=== PATIENT | female | born 1935 | race Caucasian/White ===

== ENCOUNTER → 2016-12-11 | Outpatient (CLI) | payer MEDICARE, BC ==
--- NOTE | 2016-12-12 13:01 | MM ---
Reason for exam: screening (asymptomatic). Last mammogram was performed 1 year and 1 month ago. History: Patient is postmenopausal and has history of other cancer at age 39. Took estrogen for 2 years. Took progesterone for 2 years. Physical Findings: A clinical breast exam by your physician is recommended on an annual basis and results should be correlated with mammographic findings. MG 3D Screening Mammo W/Cad Bilateral CC and MLO view(s) were taken. Prior study comparison: November 22, 2015, bilateral MG 3d screening mammo w/cad. October 31, 2014, mammogram, performed at [facility]. The breast tissue is heterogeneously dense. This may lower the sensitivity of mammography. No significant changes when compared with prior studies. ASSESSMENT: Benign, BI-RAD 2 RECOMMENDATION: Routine screening mammogram of both breasts in 1 year.
== END | disposition home or self-care (01) ==
LOC: RADMAMWWP 10:41
PROVIDERS: ATTEND Family Medicine
DX: Z12.31 Encounter for screening mammogram for malignant neoplasm of breast (principal)
CPT/HCPCS: 77063; G0202

== ENCOUNTER 2017-08-20 07:46 | Day surgery (SDC) | payer MEDICARE, BC ==
[~2017-08-20 07:46] MED LIST: PREMYELOGRAM MEDICATION REVIEW 1 EACH MISC PO ONE
[2017-08-20 08:55] VITALS: BP 157/73; PULSE 87; RESP 16; TEMP 98.1
== END 2017-08-20 08:40 | disposition home or self-care (01) ==
LOC: RADPROMAIN 07:46
PROVIDERS: ATTEND Neurological Surgery
DX: M47.27 Other spondylosis with radiculopathy, lumbosacral region (principal); M48.061 Spinal stenosis, lumbar region without neurogenic claudication; Z53.20 Procedure and treatment not carried out because of patient's decision for unspecified reasons

== ENCOUNTER → 2017-09-10 | Day surgery (SDC) | payer MEDICARE, BC ==
[2017-09-10 08:44] VITALS: RESP 16; TEMP 97.6
--- NOTE | 2017-09-10 10:52 | CT ---
EXAMINATION TYPE: CT lumbar spine w con, [place] myelogram lumbosacral DATE OF EXAM: 09/10/2017 10:00 AM HISTORY: Lower extremity pain and numbness Informed consent was obtained and all the patient's questions were answered. The L3-L4 level was loc alized under fluoroscopy. Standard sterile technique was utilized as well as appropriate local anest hesia 1% Lidocaine and sodium bicarbonate. Spinal needle was introduced into the thecal sac under fl uoroscopic guidance and 10 cc of Omni 240 was injected. The patient tolerated the procedure well and left the department in stable condition. CT myelography is to follow. IMPRESSION: Successful myelography lumbar spine EXAMINATION TYPE: CT lumbar spine w con, [place] myelogram lumbosacral DATE OF EXAM: 09/10/2017 COMPARISON: 12/22/2006 HISTORY: Radiculopathy CT DLP: 713.[address] mGy[address] of the lumbar spine was performed. Bone and soft tissue window settings are submit rebekah as well as coronal and sagittal reconstructions. T11-12: Vacuum disc changes. Subligamentous disc herniation. Mild effacement ventral thecal sac. No e vidence for central stenosis or cord contact. T12-L1: No significant abnormality L1-L2: Severe disc desiccation with vacuum disc noted. Retrolisthesis L1 and L2 of approximately 4 mm . Posterior disc bulge with encapsulating spur. Bilateral lateral recess stenosis. Left hemilaminecto my changes. No evidence for central stenosis. L2-L3: Decompressive laminectomy changes. Moderate disc space narrowing. Circumferential disc bulge m ild effacement ventral thecal sac. No evidence for recurrent or residual disease. Disc endplate compl ex. Pedicular screws noted. Alignment near-anatomic. L3-L4: Moderate degenerative disc space narrowing. Minimal posterior disc bulge. Decompressive briana ctomy. No evidence for recurrent or residual disease. L4-L5: Grade 1 anterolisthesis L4 and L5 measuring 8 mm. Decompressive laminectomy changes. Pedicular screws extending into L5. Posterior disc bulge with mild effacement ventral thecal sac. No evidence for central stenosis or recurrent disease. Spinal canal is widely capacious. L5-S1: Moderate disc space narrowing. Posterior disc bulge with encapsulating spur resulting in disc endplate complex. Mild effacement ventral thecal sac. No central stenosis or lateral recess stenosis. Foramina are patent. No paraspinal masses are identified. Lumbar segments are free if fracture. Hiatal hernia identified. IMPRESSION: 1. Postoperative changes of lumbar laminectomy and pedicular screw placement. Alignment is essentiall y stable relative to the prior study. 2. Degenerative disc disease with bulging and disc endplate complex as outlined above.
[2017-09-10 14:59] VITALS: BP 147/42; PULSE 51
== END ==
LOC: RADPROMAIN 07:56
PROVIDERS: ATTEND Neurological Surgery
DX: M51.16 Intervertebral disc disorders with radiculopathy, lumbar region (principal); M51.17 Intervertebral disc disorders with radiculopathy, lumbosacral region; M48.061 Spinal stenosis, lumbar region without neurogenic claudication; M47.817 Spondylosis without myelopathy or radiculopathy, lumbosacral region; G56.03 Carpal tunnel syndrome, bilateral upper limbs
CPT/HCPCS: 36415; 62304; 72132; Q9966; 62284; 99213

== ENCOUNTER → 2018-01-08 | Outpatient (CLI) | payer MEDICARE, BC ==
--- NOTE | 2018-01-14 10:04 | MM ---
Reason for exam: screening (asymptomatic). Last mammogram was performed 1 year and 1 month ago. History: Patient is postmenopausal and has history of other cancer at age 39. Took estrogen for 2 years. Took progesterone for 2 years. Physical Findings: A clinical breast exam by your physician is recommended on an annual basis and results should be correlated with mammographic findings. MG 3D Screening Mammo W/Cad Bilateral CC and MLO view(s) were taken. Prior study comparison: December 11, 2016, bilateral MG 3d screening mammo w/cad. November 22, 2015, bilateral MG 3d screening mammo w/cad. Finding: There are typically benign vascular, dystrophic, coarse heterogeneous, diffuse/scattered calcifications in both breasts. Asymmetries bilaterally. No significant changes in finding since December 11, 2016 and November 22, 2015. ASSESSMENT: Benign, BI-RAD 2 RECOMMENDATION: Routine screening mammogram of both breasts in 1 year.
== END | disposition home or self-care (01) ==
LOC: RADMAMWWP 11:08
PROVIDERS: ATTEND Family Medicine
DX: Z12.31 Encounter for screening mammogram for malignant neoplasm of breast (principal)
CPT/HCPCS: 77063; 77067

== ENCOUNTER 2018-03-15 21:52 | Emergency (ER) | payer MEDICARE, BC ==
[2018-03-15] MEDS ORDERED: SODIUM CHLORIDE 0.9% 1,000 ML IV STA (22:06)
[2018-03-15 22:19] LABS: Basophils # (A) 0.1 k/uL (0-0.2); Basophils % (A) 1 %; Eosinophils # (A) 0.2 k/uL (0-0.7); Eosinophils % (A) 3 %; HCT 37.6 % (34.0-46.0); Lymphocytes # (A) 1.4 k/uL (1.0-4.8); Lymphocytes % (A) 21 %; MCH 29.6 pg (25.0-35.0); MCV 92.6 fL (80.0-100.0); Mean Platelet Volume 7.6; Monocytes # (A) 0.5 k/uL (0-1.0); Monocytes % (A) 8 %; Neutrophils # (A) 4.2 k/uL (1.3-7.7); Neutrophils % (A) 63 %; Platelet Count 177 k/uL (150-450); RBC 4.06 m/uL (3.80-5.40); RDW 13.5 % (11.5-15.5); WBC 6.7 k/uL (3.8-10.6)
[2018-03-15 22:26] LABS: INR 0.9 (<1.2); Partial Thromboplastin Time 23.3 sec (22.0-30.0); Prothrombin Time 9.5 sec (9.0-12.0)
[2018-03-15 22:29] LABS: Albumin 4.2 g/dL (3.5-5.0); Calcium 9.2 mg/dL (8.4-10.2); Magnesium 1.7 mg/dL (1.6-2.3); Potassium 4.7 mmol/L (3.5-5.1); Total Bilirubin 0.3 mg/dL (0.2-1.3); Total Protein 6.6 g/dL (6.3-8.2)
--- NOTE | 2018-03-15 22:37 | XR ---
EXAMINATION TYPE: XR chest 2V DATE OF EXAM: 03/15/2018 COMPARISON: NONE HISTORY: Chest pain TECHNIQUE: Frontal and lateral views of the chest are obtained. FINDINGS: Heart and mediastinum are normal. Lungs are clear of consolidation. There is no pleural ef fusion. There is cervical spine fusion surgery. There are chest leads. Bony thorax appears intact. IMPRESSION: No active cardiopulmonary disease. Normal heart.
[2018-03-15 22:41] VITALS: PULSE 64
[2018-03-15 22:42] LABS: Creatine Kinase 94 U/L (30-135)
[2018-03-15 22:55] LABS: Troponin I <0.012 ng/mL (0.000-0.034)
--- NOTE | 2018-03-15 23:00 | ED ---
General Adult HPI - General Chief complaint: Chest Pain Stated complaint: Chest pain Time Seen by Provider: 03/15/18 22:05 Source: patient, family, RN notes reviewed, old records reviewed Mode of arrival: wheelchair Limitations: no limitations - History of Present Illness Initial comments: This is an 9-year-old female the ER today complaining of chest pain. Patient has no history of heart disease. Patient is high cholesterol high blood pressure. Patient admits to doing some work in a gradually sleeping but develops shoulder and anterior breast pain and tenderness afterwards. She felt pain throughout the day and is coming in for evaluation. No modifying factors for pain currently. Patient is recent travel history or sick contacts. No shortness of breath or fevers -: hour(s) (6) Location: chest, left, upper extremity Radiation: non-radiation Severity scale (1-10): 3 Quality: aching Consistency: constant Improves with: none Worsens with: movement, other (Touch) Associated Symptoms: denies other symptoms Treatments Prior to Arrival: none - Related Data Home Medications Medication Instructions Recorded Confirmed Aspirin [Adult Low Dose Aspirin EC] 81 mg PO DAILY 08/13/17 08/20/17 Cranberry Fruit Extract [Cranberry] 200 mg PO DAILY 08/13/17 08/20/17 Levothyroxine Sodium [Synthroid] 75 mcg PO DAILY 08/13/17 08/20/17 Losartan Potassium 100 mg PO DAILY 08/13/17 09/10/17 Multivitamin with Iron 1 each PO DAILY 08/13/17 08/20/17 [Multivitamins with Iron] quiNINE SULFATE 324 mg PO ONCE PRN 08/13/17 08/20/17 Allergies Allergy/AdvReac Type Severity Reaction Status Date / Time codeine Allergy Nausea & Verified 03/15/18 22:00 Vomiting latex Allergy Rash/Hives Verified 03/15/18 22:00 morphine Allergy Hallucinati Verified 03/15/18 22:00 ons Penicillins Allergy Swelling Verified 03/15/18 22:00 Sulfa (Sulfonamide Allergy Rash/Hives Verified 03/15/18 22:00 Antibiotics) Review of Systems ROS Statement: Those systems with pertinent positive or pertinent negative responses have been documented in the HPI. ROS Other: All systems not noted in ROS Statement are negative. Past Medical History Past Medical History: Hypertension, Neurologic Disorder, Respiratory Disorder, Thyroid Disorder Additional Past Medical History / Comment(s): pain with standing and walking, unable to lift leg more than few inches, numbness of finger and pain in the arm , carpal tunnel, History of Any Multi-Drug Resistant Organisms: None Reported Past Surgical History: Cholecystectomy, Hysterectomy Additional Past Surgical History / Comment(s): left and right knee replacement and left hip replacement, lumbar fusion with plate and screws 2009, removal of scar tissue on spine. LUMBAR MYELOGRAM. Past Anesthesia/Blood Transfusion Reactions: No Reported Reaction Past Psychological History: No Psychological Hx Reported Smoking Status: Never smoker Past Alcohol Use History: Occasional Past Drug Use History: None Reported - Past Family History Father Family Medical History: Congestive Heart Failure (CHF) General Exam - General Exam Comments Initial Comments: He does have tenderness underneath her left breast Limitations: no limitations General appearance: alert, in no apparent distress Head exam: Present: atraumatic, normocephalic, normal inspection Eye exam: Present: normal appearance, PERRL, EOMI. Absent: scleral icterus, conjunctival injection, periorbital swelling ENT exam: Present: normal exam, mucous membranes moist Neck exam: Present: normal inspection. Absent: tenderness, meningismus, lymphadenopathy Respiratory exam: Present: normal lung sounds bilaterally. Absent: respiratory distress, wheezes, rales, rhonchi, stridor Cardiovascular Exam: Present: regular rate, normal rhythm, normal heart sounds. Absent: systolic murmur, diastolic murmur, rubs, gallop, clicks GI/Abdominal exam: Present: soft, normal bowel sounds. Absent: distended, tenderness, guarding, rebound, rigid Extremities exam: Present: normal inspection, full ROM, normal capillary refill. Absent: tenderness, pedal edema, joint swelling, calf tenderness Back exam: Present: normal inspection Neurological exam: Present: alert, oriented X3, CN II-XII intact Psychiatric exam: Present: normal affect, normal mood Skin exam: Present: warm, dry, intact, normal color. Absent: rash Course Vital Signs 03/15/18 03/15/18 21:55 22:40 Temperature 97.7 F Pulse Rate 87 64 Respiratory 16 18 Rate Blood Pressure 193/77 129/58 O2 Sat by Pulse 96 100 Oximetry - Reevaluation(s) Reevaluation #1: 03/15/18 22:59 Medical records thoroughly reviewed EKG Findings - EKG Comments: EKG Findings:: EKG shows sinus rhythm rate of 70, CT 210, QRS 90, QTc 393 Medical Decision Making - Lab Data Result diagrams: 03/15/18 22:00 03/15/18 22:00 Lab Results 03/15/18 03/15/18 03/15/18 Range/Units 22:00 22:00 22:00 WBC 6.7 (3.8-10.6) k/uL RBC 4.06 (3.80-5.40) m/uL Hgb 12.0 (11.4-16.0) gm/dL Hct 37.6 (34.0-46.0) % MCV 92.6 (80.0-100.0) fL MCH 29.6 (25.0-35.0) pg MCHC 32.0 (31.0-37.0) g/dL RDW 13.5 (11.5-15.5) % Plt Count 177 (150-450) k/uL Neutrophils % 63 % Lymphocytes % 21 % Monocytes % 8 % Eosinophils % 3 % Basophils % 1 % Neutrophils # 4.2 (1.3-7.7) k/uL Lymphocytes # 1.4 (1.0-4.8) k/uL Monocytes # 0.5 (0-1.0) k/uL Eosinophils # 0.2 (0-0.7) k/uL Basophils # 0.1 (0-0.2) k/uL PT (9.0-12.0) sec INR (<1.2) APTT (22.0-30.0) sec Sodium 139 (137-145) mmol/L Potassium 4.7 (3.5-5.1) mmol/L Chloride 104 (98-107) mmol/L Carbon Dioxide 25 (22-30) mmol/L Anion Gap 10 mmol/L BUN 38 H (7-17) mg/dL Creatinine 1.31 H (0.52-1.04) mg/dL Est GFR (CKD-EPI)AfAm 44 (>60 ml/min/1.73 sqM) Est GFR (CKD-EPI)NonAf 38 (>60 ml/min/1.73 sqM) Glucose 88 (74-99) mg/dL Calcium 9.2 (8.4-10.2) mg/dL Magnesium 1.7 (1.6-2.3) mg/dL Total Bilirubin 0.3 (0.2-1.3) mg/dL AST 24 (14-36) U/L ALT 21 (9-52) U/L Alkaline Phosphatase 65 (38-126) U/L Total Creatine Kinase 94 (30-135) U/L CK-MB (CK-2) 1.3 (0.0-2.4) ng/mL CK-MB (CK-2) Rel Index 1.4 Troponin I <0.012 (0.000-0.034) ng/mL NT-Pro-B Natriuret Pep pg/mL Total Protein 6.6 (6.3-8.2) g/dL Albumin 4.2 (3.5-5.0) g/dL Lipase 123 (23-300) U/L 03/15/18 03/15/18 Range/Units 22:00 22:00 WBC (3.8-10.6) k/uL RBC (3.80-5.40) m/uL Hgb (11.4-16.0) gm/dL Hct (34.0-46.0) % MCV (80.0-100.0) fL MCH (25.0-35.0) pg MCHC (31.0-37.0) g/dL RDW (11.5-15.5) % Plt Count (150-450) k/uL Neutrophils % % Lymphocytes % % Monocytes % % Eosinophils % % Basophils % % Neutrophils # (1.3-7.7) k/uL Lymphocytes # (1.0-4.8) k/uL Monocytes # (0-1.0) k/uL Eosinophils # (0-0.7) k/uL Basophils # (0-0.2) k/uL PT 9.5 (9.0-12.0) sec INR 0.9 (<1.2) APTT 23.3 (22.0-30.0) sec Sodium (137-145) mmol/L Potassium (3.5-5.1) mmol/L Chloride (98-107) mmol/L Carbon Dioxide (22-30) mmol/L Anion Gap mmol/L BUN (7-17) mg/dL Creatinine (0.52-1.04) mg/dL Est GFR (CKD-EPI)AfAm (>60 ml/min/1.73 sqM) Est GFR (CKD-EPI)NonAf (>60 ml/min/1.73 sqM) Glucose (74-99) mg/dL Calcium (8.4-10.2) mg/dL Magnesium (1.6-2.3) mg/dL Total Bilirubin (0.2-1.3) mg/dL AST (14-36) U/L ALT (9-52) U/L Alkaline Phosphatase (38-126) U/L Total Creatine Kinase (30-135) U/L CK-MB (CK-2) (0.0-2.4) ng/mL CK-MB (CK-2) Rel Index Troponin I (0.000-0.034) ng/mL NT-Pro-B Natriuret Pep 106 pg/mL Total Protein (6.3-8.2) g/dL Albumin (3.5-5.0) g/dL Lipase (23-300) U/L - Radiology Data Radiology results: report reviewed (Chest x-rays negative for acute disease), image reviewed Disposition Clinical Impression: Chest pain Disposition: HOME SELF-CARE Condition: Good Instructions: Chest Pain (ED) Is patient prescribed a controlled substance at d/c from ED?: No Referrals: Oscar Lemon MD [Primary Care Provider] - 1-2 days
[2018-03-15 23:14] LABS: Creatine Kinase MB 1.3 ng/mL (0.0-2.4)
[2018-03-16 00:26] VITALS: BP 178/76; RESP 16; TEMP 98
== END 2018-03-16 00:34 | disposition home or self-care (01) ==
LOC: EC 21:52
DX: R07.9 Chest pain, unspecified (principal); N64.4 Mastodynia; M25.512 Pain in left shoulder; I10 Essential (primary) hypertension; E07.9 Disorder of thyroid, unspecified; Z88.0 Allergy status to penicillin; Z88.2 Allergy status to sulfonamides; Z88.5 Allergy status to narcotic agent; Z91.040 Latex allergy status; Z79.82 Long term (current) use of aspirin; Z79.899 Other long term (current) drug therapy; Z87.39 Personal history of other diseases of the musculoskeletal system and connective tissue; Z82.49 Family history of ischemic heart disease and other diseases of the circulatory system
CPT/HCPCS: 36415; 71046; 80053; 82550; 82553; 83690; 83735; 83880; 84484; 85025; 85610; 85730; 93005; 96360; 96361; 99285

== ENCOUNTER → 2019-02-09 | Outpatient (CLI) | payer MEDICARE, BC ==
--- NOTE | 2019-02-11 09:30 | MM ---
Reason for exam: screening (asymptomatic). Last mammogram was performed 1 year and 1 month ago. History: Patient is postmenopausal and has history of other cancer at age 39. Took estrogen for 2 years. Took progesterone for 2 years. Physical Findings: A clinical breast exam by your physician is recommended on an annual basis and results should be correlated with mammographic findings. MG 3D Screening Mammo W/Cad Bilateral CC and MLO view(s) were taken. Prior study comparison: January 08, 2018, bilateral MG 3d screening mammo w/cad. December 11, 2016, bilateral MG 3d screening mammo w/cad. The breast tissue is heterogeneously dense. This may lower the sensitivity of mammography. No significant changes when compared with prior studies. ASSESSMENT: Benign, BI-RAD 2 RECOMMENDATION: Routine screening mammogram of both breasts in 1 year.
== END | disposition home or self-care (01) ==
LOC: RADMAMWWP 10:48
PROVIDERS: ATTEND Family Medicine
DX: Z12.31 Encounter for screening mammogram for malignant neoplasm of breast (principal)
CPT/HCPCS: 77063; 77067

== ENCOUNTER → 2020-03-17 | Outpatient (CLI) | payer MEDICARE, BC ==
--- NOTE | 2020-03-17 10:08 | MM ---
Reason for exam: clinical finding. Last mammogram was performed 1 year and 1 month ago. History: Patient is postmenopausal and has history of other cancer at age 39. Benign excisional biopsy of the right breast, 2004. Took estrogen for 2 years. Took progesterone for 2 years. Physical Findings: Nurse Summary: 1cm nodule in the left breast at 9 o'clock (nurse mj). MG 3D Diag Mammo W/Cad YAJAIRA Bilateral CC and MLO view(s) were taken. Prior study comparison: February 09, 2019, bilateral MG 3d screening mammo w/cad. January 08, 2018, bilateral MG 3d screening mammo w/cad. The breast tissue is heterogeneously dense. This may lower the sensitivity of mammography. There is chronic nodularity bilaterally. There is no discrete abnormality including area of concern. These results were verbally communicated with the patient and result sheet given to the patient on 03/17/20. ASSESSMENT: Incomplete: need additional imaging evaluation, BI-RAD 0 RECOMMENDATION: Ultrasound of the left breast.
--- NOTE | 2020-03-17 10:09 | USB ---
Reason for exam: additional evaluation requested from abnormal screening. History: Patient is postmenopausal and has history of other cancer at age 39. Benign excisional biopsy of the right breast, 2004. Took estrogen for 2 years. Took progesterone for 2 years. US Breast Limited LT Technologist: Ely Leach Left limited breast ultrasound including focal area of concern, retroareolar and axilla demonstrates no cystic or solid lesion seen. These results were verbally communicated with the patient and result sheet given to the patient on 03/17/20. ASSESSMENT: Negative, BI-RAD 1 RECOMMENDATION: Routine screening mammogram of both breasts in 1 year. Manage patient on a clinical basis.
== END | disposition home or self-care (01) ==
LOC: RADMAMWWP 08:41
PROVIDERS: ATTEND Family Medicine
DX: N63.20 Unspecified lump in the left breast, unspecified quadrant (principal); N64.52 Nipple discharge; N64.59 Other signs and symptoms in breast
CPT/HCPCS: 77066; 76642; G0279; 77062

== ENCOUNTER 2020-08-11 13:13 | Emergency (ER) | payer MEDICARE, BC ==
[2020-08-11 13:24] VITALS: RESP 18; TEMP 97.6
--- NOTE | 2020-08-11 13:51 | ED ---
General Adult HPI - General Chief complaint: Neuro Symptoms/Deficit Stated complaint: head & arm pain/dizziness Time Seen by Provider: 08/11/20 13:15 Source: patient, family, RN notes reviewed, old records reviewed Mode of arrival: wheelchair Limitations: no limitations - History of Present Illness Initial comments: This is an 85-year-old female presents emergency Department complaining of facial drooping on the right on Friday. Patient states that resolved and is in agreement. Patient states that on Friday while sitting in a chair she started having some lightheadedness and stated it was worsening with movement and better when she sits still. Patient states the symptoms of almost completely resolved and now she only has a little bit of lightheadedness. Patient states she also having some tingling in her fingertips on and off for weeks. Patient denies any recent fever chills or cough per patient denies any chest pressure or difficulty breathing. Patient denies any headache. Patient denies any current numbness or weakness. Patient denies any abdominal pain patient is not vomiting diarrhea. - Related Data Home Medications Medication Instructions Recorded Confirmed Aspirin [Adult Low Dose Aspirin EC] 81 mg PO DAILY 08/13/17 08/11/20 Levothyroxine Sodium [Synthroid] 75 mcg PO DAILY 08/13/17 08/11/20 Losartan Potassium 100 mg PO DAILY 08/13/17 08/11/20 quiNINE sulfate [quiNINE SULFATE] 324 mg PO DAILY PRN 08/13/17 08/11/20 Biotin 5,000 mcg PO DAILY 08/11/20 08/11/20 Cranberry + Vitamin C 4200mg 2 tab PO DAILY 08/11/20 08/11/20 Allergies Allergy/AdvReac Type Severity Reaction Status Date / Time codeine Allergy Nausea & Verified 08/11/20 15:05 Vomiting latex Allergy Rash/Hives Verified 08/11/20 15:05 morphine Allergy Hallucinati Verified 08/11/20 15:05 ons Penicillins Allergy Swelling Verified 08/11/20 15:05 Sulfa (Sulfonamide Allergy Rash/Hives Verified 08/11/20 15:05 Antibiotics) Review of Systems ROS Statement: Those systems with pertinent positive or pertinent negative responses have been documented in the HPI. ROS Other: All systems not noted in ROS Statement are negative. Past Medical History Past Medical History: Hypertension, Neurologic Disorder, Respiratory Disorder, Thyroid Disorder Additional Past Medical History / Comment(s): pain with standing and walking, unable to lift leg more than few inches, numbness of finger and pain in the arm, carpal tunnel, History of Any Multi-Drug Resistant Organisms: None Reported Past Surgical History: Cholecystectomy, Hysterectomy Additional Past Surgical History / Comment(s): left and right knee replacement and left hip replacement, lumbar fusion with plate and screws 2009, removal of scar tissue on spine. LUMBAR MYELOGRAM. Past Anesthesia/Blood Transfusion Reactions: No Reported Reaction Past Psychological History: No Psychological Hx Reported Past Alcohol Use History: Occasional Past Drug Use History: None Reported - Past Family History Father Family Medical History: Congestive Heart Failure (CHF) General Exam - General Exam Comments Initial Comments: GENERAL: Patient is well-developed and well-nourished. Patient is nontoxic and well- hydrated and is in no acute distress. ENT: Neck is soft and supple. No significant lymphadenopathy is noted. Oropharynx is clear. Moist mucous membranes. Neck has full range of motion without eliciting any pain. EYES: The sclera were anicteric and conjunctiva were pink and moist. Extraocular movements were intact and pupils were equal round and reactive to light. Eyelids were unremarkable. PULMONARY: Unlabored respirations. Good breath sounds bilaterally. No audible rales rhonchi or wheezing was noted. CARDIOVASCULAR: There is a regular rate and rhythm without any murmurs gallops or rubs. ABDOMEN: Soft and nontender with normal bowel sounds. No palpable organomegaly was noted. There is no palpable pulsatile mass. SKIN: Skin is clear with no lesions or rashes and otherwise unremarkable. NEUROLOGIC: Patient is alert and oriented x3. Cranial nerves II through XII are grossly intact. Motor and sensory are also intact. Normal speech, volume and content. Symmetrical smile. Cerebellar exam grossly intact. NIH is 0 MUSCULOSKELETAL: Normal extremities with adequate strength and full range of motion. No lower extremity swelling or edema. No calf tenderness. LYMPHATICS: No significant lymphadenopathy is noted PSYCHIATRIC: Normal psychiatric evaluation. Limitations: no limitations Course Vital Signs 08/11/20 13:18 Temperature 97.6 F Pulse Rate 71 Respiratory 18 Rate Blood Pressure 177/88 O2 Sat by Pulse 95 Oximetry Medical Decision Making - Medical Decision Making EKG shows sinus bradycardia 59 bpm OK interval is 210 QRS is 86 QT interval 380 QTC is 376. EKG shows no ST segment elevation or depression CT of the brain shows no acute abnormality. CT of the head neck shows no acute abnormality. Patient did not want to stay in the hospital she wanted to follow-up with her primary medical care doctor and she agreed to take an aspirin every day. - Lab Data Result diagrams: 08/11/20 13:45 08/11/20 13:45 Lab Results 08/11/20 08/11/20 08/11/20 Range/Units 13:45 13:45 13:45 WBC 5.0 (3.8-10.6) k/uL RBC 4.37 (3.80-5.40) m/uL Hgb 13.1 (11.4-16.0) gm/dL Hct 39.6 (34.0-46.0) % MCV 90.7 (80.0-100.0) fL MCH 30.1 (25.0-35.0) pg MCHC 33.2 (31.0-37.0) g/dL RDW 12.8 (11.5-15.5) % Plt Count 172 (150-450) k/uL MPV 8.6 Neutrophils % 58 % Lymphocytes % 27 % Monocytes % 7 % Eosinophils % 3 % Basophils % 1 % Neutrophils # 2.9 (1.3-7.7) k/uL Lymphocytes # 1.4 (1.0-4.8) k/uL Monocytes # 0.4 (0-1.0) k/uL Eosinophils # 0.2 (0-0.7) k/uL Basophils # 0.1 (0-0.2) k/uL PT 9.7 (9.0-12.0) sec INR 0.9 (<1.2) APTT 24.3 (22.0-30.0) sec Sodium 138 (137-145) mmol/L Potassium 5.2 H (3.5-5.1) mmol/L Chloride 101 (98-107) mmol/L Carbon Dioxide 29 (22-30) mmol/L Anion Gap 8 mmol/L BUN 21 H (7-17) mg/dL Creatinine 0.91 (0.52-1.04) mg/dL Est GFR (CKD-EPI)AfAm 67 (>60 ml/min/1.73 sqM) Est GFR (CKD-EPI)NonAf 58 (>60 ml/min/1.73 sqM) Glucose 89 (74-99) mg/dL Calcium 9.9 (8.4-10.2) mg/dL Magnesium 1.7 (1.6-2.3) mg/dL Total Bilirubin 0.8 (0.2-1.3) mg/dL AST 42 H (14-36) U/L ALT 23 (4-34) U/L Alkaline Phosphatase 67 (38-126) U/L Troponin I (0.000-0.034) ng/mL Total Protein 7.1 (6.3-8.2) g/dL Albumin 4.6 (3.5-5.0) g/dL 08/11/20 Range/Units 13:45 WBC (3.8-10.6) k/uL RBC (3.80-5.40) m/uL Hgb (11.4-16.0) gm/dL Hct (34.0-46.0) % MCV (80.0-100.0) fL MCH (25.0-35.0) pg MCHC (31.0-37.0) g/dL RDW (11.5-15.5) % Plt Count (150-450) k/uL MPV Neutrophils % % Lymphocytes % % Monocytes % % Eosinophils % % Basophils % % Neutrophils # (1.3-7.7) k/uL Lymphocytes # (1.0-4.8) k/uL Monocytes # (0-1.0) k/uL Eosinophils # (0-0.7) k/uL Basophils # (0-0.2) k/uL PT (9.0-12.0) sec INR (<1.2) APTT (22.0-30.0) sec Sodium (137-145) mmol/L Potassium (3.5-5.1) mmol/L Chloride (98-107) mmol/L Carbon Dioxide (22-30) mmol/L Anion Gap mmol/L BUN (7-17) mg/dL Creatinine (0.52-1.04) mg/dL Est GFR (CKD-EPI)AfAm (>60 ml/min/1.73 sqM) Est GFR (CKD-EPI)NonAf (>60 ml/min/1.73 sqM) Glucose (74-99) mg/dL Calcium (8.4-10.2) mg/dL Magnesium (1.6-2.3) mg/dL Total Bilirubin (0.2-1.3) mg/dL AST (14-36) U/L ALT (4-34) U/L Alkaline Phosphatase (38-126) U/L Troponin I <0.012 (0.000-0.034) ng/mL Total Protein (6.3-8.2) g/dL Albumin (3.5-5.0) g/dL Disposition Clinical Impression: TIA (transient ischemic attack) Disposition: HOME SELF-CARE Condition: Good Instructions (If sedation given, give patient instructions): Transient Ischemic Attack (ED) Additional Instructions: Patient should take an aspirin 325 mg daily Is patient prescribed a controlled substance at d/c from ED?: No Referrals: Oscar Lemon MD [Primary Care Provider] - 1-2 days Time of Disposition: 17:14
[2020-08-11 14:22] LABS: Basophils # (A) 0.1 k/uL (0-0.2); Basophils % (A) 1 %; Eosinophils # (A) 0.2 k/uL (0-0.7); Eosinophils % (A) 3 %; HCT 39.6 % (34.0-46.0); HGB 13.1 gm/dL (11.4-16.0); Lymphocytes # (A) 1.4 k/uL (1.0-4.8); Lymphocytes % (A) 27 %; MCH 30.1 pg (25.0-35.0); MCHC 33.2 g/dL (31.0-37.0); MCV 90.7 fL (80.0-100.0); Mean Platelet Volume 8.6; Monocytes # (A) 0.4 k/uL (0-1.0); Monocytes % (A) 7 %; Neutrophils # (A) 2.9 k/uL (1.3-7.7); Neutrophils % (A) 58 %; Platelet Count 172 k/uL (150-450); RBC 4.37 m/uL (3.80-5.40); RDW 12.8 % (11.5-15.5)
[2020-08-11 14:32] LABS: INR 0.9 (<1.2); Partial Thromboplastin Time 24.3 sec (22.0-30.0); Prothrombin Time 9.7 sec (9.0-12.0)
[2020-08-11 14:43] LABS: Albumin 4.6 g/dL (3.5-5.0); Calcium 9.9 mg/dL (8.4-10.2); Magnesium 1.7 mg/dL (1.6-2.3); Total Bilirubin 0.8 mg/dL (0.2-1.3); Total Protein 7.1 g/dL (6.3-8.2)
[2020-08-11 14:53] LABS: Potassium 5.2 mmol/L (3.5-5.1)
--- NOTE | 2020-08-11 15:25 | XR ---
EXAMINATION TYPE: XR chest 2V DATE OF EXAM: 08/11/2020 COMPARISON: 03/15/2018 INDICATION: Chest pain, facial drooping dizziness TECHNIQUE: Frontal and lateral views of the chest are obtained. FINDINGS: The heart size is normal. The pulmonary vasculature is normal. The lungs are clear. IMPRESSION: 1. No acute pulmonary process.
--- NOTE | 2020-08-11 15:43 | CT ---
EXAMINATION TYPE: CT brain wo con DATE OF EXAM: 08/11/2020 COMPARISON: None HISTORY: Right sided facial droop, numbness to fingers and headache. CT DLP: 1059.[address] of the brain was performed. The ventricles, basal cisterns and sulci overlying the cerebral convexities demonstrate mild enlargem ent. There is no evidence for intracranial hemorrhage or sulcal effacement. There is decreased attenuation about the periventricular white matter and deep white matter of both c erebral hemispheres, compatible with chronic small vessel ischemia. Differential diagnosis does inclu de demyelination. No mass effects are seen.No midline shift. Osseous calvarium is intact. If symptoms persist consider MRI. IMPRESSION: 1. Age related atrophic and chronic small vessel ischemic change without acute intracranial process s een at this time.
--- NOTE | 2020-08-11 16:14 | CT ---
EXAMINATION TYPE: CT angio head neck DATE OF EXAM: 08/11/2020 COMPARISON: None HISTORY: Right sided facial droop, numbness to fingers and headache. CT DLP: 471.2 mGycm CONTRAST: Performed with IV Contrast, patient injected with 65 mL of Isovue 370. Combination Contrast CTA cervical carotids and [place] CTA cervical carotids with 3-D recons truction Contrast CTA of the cervical carotids was performed 3-D reconstruction imaging obtained at a separate workstation. Right carotid system: Mild plaque is seen of the right common carotid artery. There is mild plaque a lso noted at the carotid bulb and proximal ICA. No significant diameter reduction. ECA is patent. Right vertebral artery appears unremarkable. Left carotid system: Mild plaque is seen of the left common carotid artery. There is mild plaque als o noted at the carotid bulb and proximal ICA. No significant diameter reduction. ECA is patent. Lef t vertebral artery appears unremarkable. IMPRESSION: 1. No significant diameter reduction to account for the patient's symptoms. CTA [place] with 3-D reconstruction Contrast CTA of the [place] was performed 3-D reconstruction imaging obtained at a separate workstation. Vertebrobasilar system as well as intracranial portions of the internal carotid arteries and their ma marlon tributaries are patent. I do not see evidence for sizable aneurysm or vascular malformation. Pl ease note MRI provides greater sensitivity and specificity. Visualized brain appears grossly unremar kable. IMPRESSION: 1. No significant abnormality.
[2020-08-11 17:22] VITALS: BP 142/74; PULSE 74
== END 2020-08-11 17:32 | disposition home or self-care (01) ==
LOC: EC 13:13
DX: G45.9 Transient cerebral ischemic attack, unspecified (principal); R00.1 Bradycardia, unspecified; I10 Essential (primary) hypertension; E07.9 Disorder of thyroid, unspecified; Z79.899 Other long term (current) drug therapy; Z79.890 Hormone replacement therapy; Z79.82 Long term (current) use of aspirin; Z88.5 Allergy status to narcotic agent; Z91.040 Latex allergy status; Z88.0 Allergy status to penicillin; Z88.2 Allergy status to sulfonamides; Z96.642 Presence of left artificial hip joint; Z96.653 Presence of artificial knee joint, bilateral
CPT/HCPCS: 36415; 93005; 80053; 83735; 84484; 85025; 85610; 85730; 71046; 70496; 70450; 70498; 99285; Q9967

== ENCOUNTER → 2021-03-19 | Outpatient (CLI) | payer MEDICARE, BC ==
--- NOTE | 2021-03-20 07:29 | MM ---
Reason for exam: screening (asymptomatic). Last mammogram was performed 1 year ago. History: Patient is postmenopausal and has history of other cancer at age 39. Benign excisional biopsy of the right breast, 2004. Took estrogen for 2 years. Took progesterone for 2 years. Physical Findings: A clinical breast exam by your physician is recommended on an annual basis and results should be correlated with mammographic findings. MG 3D Screening Mammo W/Cad Bilateral CC and MLO view(s) were taken. Prior study comparison: March 17, 2020, bilateral MG 3d diag mammo w/cad [id number]. February 09, 2019, bilateral MG 3d screening mammo w/cad. The breast tissue is heterogeneously dense. This may lower the sensitivity of mammography. Finding: There are typically benign dystrophic, round, linear calcifications in both breasts. There is no discrete abnormality. ASSESSMENT: Benign, BI-RAD 2 RECOMMENDATION: Routine screening mammogram of both breasts in 1 year.
== END | disposition home or self-care (01) ==
LOC: RADMAMWWP 11:38
PROVIDERS: ATTEND Family Medicine
DX: Z12.31 Encounter for screening mammogram for malignant neoplasm of breast (principal)
CPT/HCPCS: 77063; 77067

== ENCOUNTER → 2023-01-14 | Outpatient (CLI) | payer MEDICARE, BC ==
--- NOTE | 2023-01-14 19:52 | NM ---
EXAMINATION TYPE: NM bone 3 phase DATE OF EXAM: 01/14/2023 COMPARISON: NONE CLINICAL INDICATION: Female, 87 years old with history of M25.552, Z96.642; left hip replacement and left hip pain. Technique: Triple phase bone scintigraphy was performed following the injection of 23.2 mCi Tc 99m MD P. Immediate images and 5 hours post injection images acquired. FINDINGS: Flow images show no asymmetric hyperemia. Pool images appears symmetric from side to side. Delayed scan shows photopenia at the left hip joint compatible with underlying total hip arthroplasty . No abnormal focal increased tracer activity is seen about either the acetabular or femoral prosthet ic components. 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 Some nonspecific increased tracer activity along the tibial tray components, symmetric from side to side. IMPRESSION: Photopenia related to underlying left hip arthroplasty. No abnormal tracer activity identified along the left hip replacement.
== END | disposition home or self-care (01) ==
LOC: RADNMMAIN 07:09
PROVIDERS: ATTEND Orthopaedic Surgery
DX: M25.552 Pain in left hip (principal); Z96.642 Presence of left artificial hip joint; T84.84XA Pain due to internal orthopedic prosthetic devices, implants and grafts, initial encounter; Y82.9 Unspecified medical devices associated with adverse incidents
CPT/HCPCS: 78315; A9503

== ENCOUNTER → 2023-01-14 | Outpatient (CLI) | payer MEDICARE, BC | END | disposition home or self-care (01) | LOC: LABWHC1 10:42 | PROVIDERS: ATTEND Orthopaedic Surgery | DX: T84.84XA Pain due to internal orthopedic prosthetic devices, implants and grafts, initial encounter (principal); M25.552 Pain in left hip; Y82.9 Unspecified medical devices associated with adverse incidents; Z96.642 Presence of left artificial hip joint | CPT/HCPCS: 36415; 85379; 85652; 86140 ==

== ENCOUNTER → 2023-04-15 | Outpatient (CLI) | payer MEDICARE, BC ==
--- NOTE | 2023-04-15 13:02 | NM ---
EXAMINATION TYPE: NM stress lexiscan cardiolite DATE OF EXAM: 04/15/2023 COMPARISON: NONE HISTORY: Chest pain TECHNIQUE: After the intravenous administration of 10.1 mCi Tc 99m Sestamibi - Cardiolite resting SP ECT images acquired 75 minutes post injection. At peak stress 25.4 mCi Tc 99m Sestamibi - Stress images obtained 45 minutes post injection The patient was stressed with 0.4mg Lexiscan. FINDINGS: No fixed defects are evident No reversible stress defects on Spect images Wall motion is normal Ejection fraction is calculated to be 60 %. IMPRESSION: 1. No stress-induced ischemic changes.
--- NOTE | 2023-04-15 13:02 | CA ---
Lexiscan Nuclear Stress Test Report Name: Paula Campos Exam Date: 04/15/2023 10:11 Exam Location: [facility] Stress Ht (in): 61 Wt (lb): 180 BSA: 1.81 Ordering Phys: Radha Larose DO Referring Phys: Michelle Caban PAC Technologist: Joe Watson Age: 88 Gender: F : 1935 Procedure CPT: Indications: R00.2 palpitations ICD-10 Codes: Patient History: CP, STEFAN, PALP, HTN, CVA (TIA). FAMILY HX Medications: LOSARTAN, VIT D, VIT C, SYNTHROID, BIOTON, ZINC Meds past 24 hrs: Pretest Chest Pain: STRESS TEST Lexiscan Protocol Exercise Duration (min:sec): 02:[address] Depressions (mm): Angina Score: Escoto Score: Resting HR (bpm): 55 Peak HR (bpm): 87 Resting BP (mmHg): 120 / 68 Peak BP (mmHg): 139 / 60 MPHR: 133 Target HR: 113 % MPHR: 65 METS: 1.0 Total Dose: Peak Dose: Atropine: Double Product: 43553 BP Response: Stress Termination: END OF DOSAGE Stress Symptoms: Stress Summary: ECG ANALYSIS Resting ECG: Sinus rhythm. Normal conduction. No arrhythmias. Normal repolarization. Stress ECG: No ECG changes from baseline with Lexiscan infusion. CONCLUSIONS No ECG evidence of ischemia with Lexiscan infusion. Nuclear test results to follow. Dr. Morales Cavazos MD (Electronically Signed) Final Date: 15 April 2023 13:01
== END | disposition home or self-care (01) ==
LOC: RADNMMAIN 08:04
PROVIDERS: ATTEND Family Medicine
DX: R00.2 Palpitations (principal); R94.31 Abnormal electrocardiogram [ECG] [EKG]; R06.09 Other forms of dyspnea; R07.9 Chest pain, unspecified
CPT/HCPCS: 93017; 78452; A9500

== ENCOUNTER → 2023-09-22 | Outpatient (CLI) | payer MEDICARE, BC ==
[2023-09-22 16:20] LABS: Blood Urea Nitrogen 38.9 mg/dL (9.0-27.0); Carbon Dioxide 29.2 mmol/L (21.6-31.8); Chloride 99 mmol/L (96-109); Glucose 144 mg/dL (70-110); Potassium 4.7 mmol/L (3.5-5.5); Sodium 138 mmol/L (135-145)
[2023-09-22 16:44] LABS: Prothrombin Time 10.8 sec (9.9-11.9)
[2023-09-22 17:07] LABS: Basophils # (A) 0.06 X 10*3/uL (0.00-0.10); Basophils % (A) 1.1 %; Eosinophils # (A) 0.42 X 10*3/uL (0.04-0.35); Eosinophils % (A) 7.4 %; HCT 33.8 % (37.2-46.3); HGB 10.7 g/dL (12.0-15.0); Lymphocytes # (A) 1.04 X 10*3/uL (0.90-5.00); Lymphocytes % (A) 18.3 %; MCH 28.9 pg (27.0-32.0); MCHC 31.7 g/dL (32.0-37.0); MCV 91.4 FL (80.0-97.0); Monocytes # (A) 0.57 X 10*3/uL (0.20-1.00); NRBC Per 100 WBC 0 X 10*3/uL (0.00-0.01); Neutrophils # (A) 3.58 X 10*3/uL (1.80-7.70); Neutrophils % (A) 62.8 %; Platelet Count 190 X 10*3/uL (140-440); WBC 5.69 X 10*3/uL (4.50-10.00)
== END | disposition home or self-care (01) ==
LOC: LABPAT 12:44
PROVIDERS: ATTEND Orthopaedic Surgery
DX: Z01.812 Encounter for preprocedural laboratory examination (principal); Z22.322 Carrier or suspected carrier of Methicillin resistant Staphylococcus aureus; M16.12 Unilateral primary osteoarthritis, left hip
CPT/HCPCS: 80051; 82565; 82947; 84520; 85025; 85610; 86850; 86900; 86901; 87070

== ENCOUNTER 2023-09-29 10:08 | Day surgery (SDC) | payer MEDICARE, BC ==
--- NOTE | 2023-09-28 11:24 | HP ---
HISTORY AND PHYSICAL Surgery is scheduled for 09/29/2023. HISTORY OF PRESENT ILLNESS: Paula Campos is an 88-year-old patient, seen with symptomatic right hip osteoarthritis. After having treatment options discussed, she elected to proceed with direct anterior right total hip arthroplasty. Consent was obtained. Medical clearance was provided by office. PAST MEDICAL HISTORY: Hypertension, hypothyroidism. PAST SURGICAL HISTORY: Cholecystectomy, knee surgery, hysterectomy. DAILY MEDICATIONS: 1. Aspirin. 2. Levothyroxine. 3. Losartan. 4. Tramadol. ALLERGIES: Codeine, morphine. SOCIAL HISTORY: She denies tobacco use. PHYSICAL EVALUATION OF THE RIGHT HIP: She has very limited range of motion with severe pain. Positive hip impingement sign. Straight-leg raise is negative. Distal neurovascular exam is intact. IMAGING STUDIES: Radiographs of the right hip reveals severe osteoarthritic changes. IMPRESSION: 1. Right hip osteoarthritis. 2. Hypertension. 3. Hypothyroidism. PLAN: Direct anterior right total hip arthroplasty. MMODL / IJN: [id number] /
[~2023-09-29 10:08] MED LIST changes: +LIDOCAINE 1% (10MG/ML) FOR IV START INTRADERMA PRN; -PREMYELOGRAM MEDICATION REVIEW 1 EACH MISC PO ONE; +TRANEXAMIC 1,000 MG/100ML-NACL 1,000 MG in SALINE 1 100ML.BAG IVPB PRN; +fentaNYL (PF) 50 MCG/ML 2 ML AMP IV PRN
[2023-09-29] MEDS: LACTATED RINGERS 1,000 ML IV SCH (11:05)
[2023-09-29] MEDS: ONDANSETRON 4 MG/2 ML VIAL IVP ONE (11:06)
[2023-09-29] MEDS: DEXAMETHASONE SOD PHOSPHATE 4 MG/ML 1 ML VIAL IVP ONE (11:06)
[2023-09-29] MEDS ORDERED: ACETAMINOPHEN TAB 500 MG TAB ONE (11:08)
[2023-09-29] MEDS: ACETAMINOPHEN TAB 500 MG TAB PO PRN (11:09)
[2023-09-29] MEDS: MELOXICAM 7.5 MG TAB PO PRN (11:09)
[2023-09-29] MEDS: fentaNYL (PF) 50 MCG/ML 2 ML AMP IVP ONE (11:42)
[2023-09-29] MEDS: MIDAZOLAM 2 MG/2 ML VIAL IVP ONE (11:42)
[2023-09-29] MEDS ORDERED: LIDOCAINE 1% INJ 10MG/ML (20 ML MDV) ONE (12:15)
[2023-09-29] MEDS ORDERED: ROPIVACAINE 5 MG/ML 30 ML VIAL ONE (12:15)
[2023-09-29] MEDS ORDERED: NEOSTIGMINE 1 MG/ML 10 ML VIAL ONE (12:15)
[2023-09-29] MEDS ORDERED: TRANEXAMIC 1,000 MG/100ML-NACL PREMIX BAG ONE (12:15)
[2023-09-29] MEDS ORDERED: PROPOFOL 10 MG/ML 20 ML VIAL IV ONE (12:15)
[2023-09-29] MEDS ORDERED: SUCCINYLCHOLINE CHLORIDE 200 MG/10 ML VIAL IV ONE (12:15)
[2023-09-29] MEDS ORDERED: GLYCOPYRROLATE 0.2 MG/ML 2 ML VIAL ONE (12:15)
[2023-09-29] MEDS ORDERED: ROCURONIUM 10 MG/ML (5 ML VIAL) IV ONE (12:15)
[2023-09-29] MEDS ORDERED: fentaNYL (PF) 50 MCG/ML 2 ML AMP ONE (12:15)
[2023-09-29] MEDS: ceFAZolin 1,000 MG in SODIUM CHLORIDE 0.9% 1,000 ML IRRIGATION ONE (12:48)
[2023-09-29] MEDS: LACTATED RINGERS 1,000 ML IV ONE (13:44)
--- NOTE | 2023-09-29 14:06 | P.OP ---
Date of Procedure: 09/29/23 Preoperative Diagnosis: Right hip osteoarthritis Postoperative Diagnosis: Right hip osteoarthritis Procedure(s) Performed: Direct anterior right total hip arthroplasty Implants: 1. DePuy Corail size 9 standard collared press-fit femoral stem 2. DePuy Fletcher 50 mm press-fit acetabular shell 3. Fletcher dual mobility liner 50 mm bi-mentum PE liner 43/22.2 4. DePuy bi-mentum Altrx liner 43/22 5. DePuy articular lease femoral head 05/29 taper +7 Anesthesia: GETA, regional (Erector spinae block) Surgeon: Daniel Bliss Retort Cooler #1: Lauri Gauthier Estimated Blood Loss (ml): 65 Pathology: none sent Condition: stable Disposition: PACU Indications for Procedure: 88-year-old patient seen with symptomatic right hip osteoarthritis. After treatment options were discussed, she elected to proceed with direct anterior right total hip arthroplasty. Operative Findings: See description of procedure Description of Procedure: The patient was taken to the operative suite. Patient underwent a general anesthetic by the department of anesthesia. Patient was then transferred to the [place] table. Patient was given preoperative IV antibiotics and TXA. Both lower extremities were placed in standard leg spars. The hip was then prepped and draped in the normal sterile orthopedic fashion. A standard anterior incision was made beginning 3 cm lateral and 1 cm distal to the ASIS extending 10 cm. Dissection was then carried down through the subcutaneous soft tissues down to the fascia overlying the tensor fascia mary. An incision was now made through the fascia. Careful dissection was taken down exposing the tensor fascia mary muscle. A Cobra retractor was now placed along the medial femoral neck and a second one along the lateral femoral neck. The venous circumflex vessels were now identified, cauterized and clipped. We identified the anterior hip capsule. An incision was made through the hip capsule along the lateral border. I performed a partial anterior capsulectomy. Retractors were now placed around the femoral neck itself. A femoral neck cut was now made with a sagittal saw. It was completed with an osteotome at the lateral neck area. The femoral head was now removed without difficulty. The extremity was now rotated to 60 of external rotation. It was locked in position. Residual labrum was now debrided out. Serial reaming was performed of the acetabulum while Manny LOWRY assisted holding an anterior retractor for exposure. Once we reached the appropriate size and a trial was position and fit nicely. The appropriate size was now chosen opened and made available. It was introduced into the acetabulum without difficulty. The C-arm/fluoroscopy was now brought into the operative field. We made sure we had a true AP pelvic view. We now under direct C- arm/fluoroscopy introduced into the acetabular component with appropriate version and inclination. I held the cup in appropriate position well Manny LOWRY used a mallet to seat the acetabular component. I noted the component now to be well seated and stable. Acetabular cup introduce her was removed. The C-arm was pulled back. An appropriate metal liner for a dual mobility hip implant was introduced and malleted into position. It was felt to be stable. At this point retractors were removed. The extremity was now placed into 140 external rotation with no traction. The leg was now dropped to the ground and adducted. Appropriate retractors were now positioned along the proximal femur. We also placed our femoral look into position. Additional capsular releasing was performed to gain access to the proximal femur. We now used a box osteotome. A canal finder was now utilized. Serial broaching was now performed with the assistance of Manny LOWRY tapping the broaches down with a mallet while held the broach in appropriate rotation and position. This was done until we reached the appropriate size with good overall rotational stability. Appropriate calcar planing was performed. A trial head/neck was placed into position again utilizing a dual mobility head. The hip was now reduced. The C- arm/fluoroscopy was brought back into the operative field. I obtained AP pelvis was demonstrated adequate leg length alignment. The trial components appeared adequately sized and position. The C-arm/fluoroscopy was pulled back. Retractors were repositioned and the hip was dislocated. The leg was again taken down to the ground and adducted. Appropriate retractors were repositioned as well as the femoral hook. All trial components were removed. The femoral implant was opened along with the femoral head. The femoral implant was introduced on the appropriate handle into our pre-broached area. I held the component position well Manny LOWRY used a mallet to seat the femoral component. The femoral component was now noted to be well seated and stable.. The dual mobility femoral head was introduced with good positioning and fixation noted. Retractors were now removed. The hip was now reduced. There appeared be good positioning of the hip confirmed on intraoperative fluoroscopy. Spot films were obtained to document this. A second gram of TXA was given. Bipolar cautery had been utilized intermittently through the procedure for hemostasis. The wound was irrigated copiously with pulse lavage mechanical irrigation. The fascia was repaired with Vicryl suture. The subcutaneous soft tissues were repaired in layers with Vicryl suture. The skin was approximated with pernio/Dermabond. Sterile dressings were applied. Patient was then awakened, transferred to a bed and taken to recovery in stable condition. Manny LOWRY assisted with the complex procedure.
[2023-09-29] MEDS ORDERED: ONDANSETRON 4 MG/2 ML VIAL IVP PRN (14:15)
[2023-09-29] MEDS ORDERED: NALOXONE 0.4 MG/ML 1 ML VIAL IV PRN (14:15)
[2023-09-29] MEDS ORDERED: Acetaminophen-Codeine 300-30mg TAB PO PRN (14:15)
[2023-09-29] MEDS ORDERED: HYDROmorphone 0.5 MG/0.5 ML SYRINGE IVP PRN ×3 (14:15)
--- NOTE | 2023-09-29 14:33 | FL ---
Fluoroscopy INDICATION: Right hip replacement FINDINGS: Fluoroscopy was provided for right hip replacement. Images obtained: 0. IMPRESSION: 1. Documentation of fluoroscopy.
--- NOTE | 2023-09-29 15:17 | P.ANPRN ---
Procedure Note - Anesthesia - Nerve Block Performed Right Diego Single Time Out Performed: Yes (1141) Date of Procedure: 09/29/23 Procedure Start Time: 11:42 Procedure Stop Time: 11:48 Location of Patient: PreOp Indication: Acute Post-Operative Pain, Requested by Surgeon Specifically requested for management of pain by DrBrijesh: Daniel Bliss Sedation Type: Sedate with meaningful contact maintained Preparation: Sterile Prep Position: Supine Catheter: None Needle Types: Pajunk Needle Gauge: 21 Ultrasound used to visualize needle placement: Yes Ultrasound used to observe medication spread: Yes Injectate: 0.5% Ropivacaine (see comment for volume) (30gg) Blood Aspirated: No Pain Paresthesia on Injection Noted: No Resistance on Injection: Normal Image Stored and Saved: Yes Events: Uneventful and Well Tolerated
[2023-09-29] MEDS: LOSARTAN 50 MG TAB PO SCH (21:37)
[2023-09-29] MEDS: BENZOCAINE/MENTHOL LOZENG 1 EACH LOZENGE MUCOUS MEM PRN (21:37)
[2023-09-29] MEDS: SENNOSIDES-DOCUSATE SODIUM 1 EACH TAB PO SCH (21:38)
[2023-09-29] MEDS: SODIUM CHLORIDE 0.9% 1,000 ML IV SCH (21:43)
[2023-09-29] MEDS: ALPRAZolam 0.25 MG TAB PO PRN (22:08)
--- NOTE | 2023-09-30 | XR ---
Fluoroscopy INDICATION: Pain FINDINGS: Fluoroscopy time: 10 seconds. Total dose area product (DAP) in uGy*m?, mGy*cm? (or similar): 1.1544 Images obtained: 4. IMPRESSION: 1. Documentation of fluoroscopy.
[2023-09-30 01:22] VITALS: RESP 16
[2023-09-30] MEDS: LEVOTHYROXINE 75 MCG TAB PO SCH (05:58)
[2023-09-30 07:59] VITALS: BP 149/74; PULSE 90; TEMP 98.4
[2023-09-30 08:52] LABS: Basophils # (A) 0.02 X 10*3/uL (0.00-0.10); Basophils % (A) 0.2 %; Eosinophils # (A) 0.01 X 10*3/uL (0.04-0.35); Eosinophils % (A) 0.1 %; HGB 10.5 g/dL (12.0-15.0); Lymphocytes # (A) 1.26 X 10*3/uL (0.90-5.00); Lymphocytes % (A) 12.7 %; MCH 29.5 pg (27.0-32.0); MCHC 32.8 g/dL (32.0-37.0); MCV 89.9 FL (80.0-97.0); Monocytes # (A) 1.05 X 10*3/uL (0.20-1.00); Monocytes % (A) 10.6 %; NRBC Per 100 WBC 0 X 10*3/uL (0.00-0.01); Neutrophils % (A) 75.9 %; Platelet Count 182 X 10*3/uL (140-440); RBC 3.56 X 10*6/uL (4.10-5.20); WBC 9.89 X 10*3/uL (4.50-10.00)
[2023-09-30] MEDS: ENOXAPARIN 40 MG/0.4 ML SYRINGE SQ SCH (09:31)
[2023-09-30] MEDS: FAMOTIDINE 20 MG TAB PO SCH (09:33)
--- NOTE | 2023-09-30 10:11 | P.DS ---
Providers Date of admission: 09/29/2023 Expected date of discharge: 09/30/23 Attending physician: Daniel Bliss Consults: 09/29/23 14:15 Consult Physician Routine Consulting Provider: Bhargav Tadeo Consult Reason/Comments: medical management Do you want consulting provider notified?: Yes Primary care physician: Stated None Hospital Course: Date of admission: 09/29/2023 Date of discharge: 09/30/2023 Admission diagnosis: right hip osteoarthritis Discharge diagnosis: same Attending physician: Dr. Bliss Surgical procedures: direct anterior right total hip arthroplasty Brief history: Patient is a 88-year-old female with a history of progressive primary right hip osteoarthritis. At this point patient has failed conservative treatment measures and has opted to proceed with a elective direct anterior right total hip arthroplasty. Hospital course: Details of patient's surgery can be found in operative report. Patient tolerated the procedure well and was subsequently transported to orthopedic floor. Patient's orthopeidc and medical care was provided daily. Patient had daily laboratory tests performed for evaluation of overall blood counts. Patient had daily physical therapy to include strengthening range of motion as well as education with walker ambulation. Patient was treated with Lovenox for their postoperative DVT prophylaxis during their inpatient stay. Patient was noted to have a relatively uneventful postoperative course. Patient reported satisfactory pain control with oral pain medications by postoperative day 1. Patient showed satisfactory progress with physical therapy. Patient moved steadily through the program and had no difficulty meeting the goals by postoperative day 1. Given patient's otherwise satisfactory course and having met physical therapy goals, plan is to discharge patient home with health services on postoperative day 1. Discharge condition/disposition: Patient will be discharged home with health services in stable condition. Discharge medications: Instructions are given on resumption of patient's normal daily medications per primary care recommendation, in addition patient will be prescribed tramadol 50 mg; resume aspirin 81 mg twice a day 30 days at home; danna. Orthopedic Discharge Instructions: 1. Wound care and infection precautions, keep incision dry and covered while showering, no lotions, creams, moisturizers. No soaking, pools, hot tubs. Do not scrub over incision. 2. Weight-bear as tolerated with walker / cane until follow-up. 3. Ice and elevate when necessary. Do not exceed 20 minutes per hour with ice pack. 4. Utilize compression sleeve until seen at first follow up appointment. 5. Pain meds and anticoagulants per prescription. 6. Pain medication has potential to cause constipation. Increase oral fluid and fiber intake. Contact primary care provider if you have not had a bowel movement within 48 hours after discharge. 7. No anti-inflammatory medication until discussed at first post operative visit, this including Motrin, Aleve, Mobic, Diclofenac. 8. Follow up in office at 2 weeks postop with Manny Gauthier PA-C / Jovan Dominguez PA-C 9. Follow up with your primary care doctor 7-10 days after discharge. 10. Contact [facility] with any questions, . keep incision clean, dry, intact. While showering, cover silver foam dressing with stirrup. Keep silver foam dressing on until 10/06/2023. It is okay to shower directly over incision once dressing is removed on 10/06/2023. Assessment: right hip osteoarthritis Procedures: direct anterior right total hip arthroplasty Patient Condition at Discharge: Good Plan - Discharge Summary Discharge Rx Participant: Yes New Discharge Prescriptions: New Sennosides/Docusate Sodium [Senna Plus 8.6-50 mg Softgel] 1 each PO DAILY #20 capsule traMADol HCL 50 mg PO Q6H #28 tab Continue Aspirin [Adult Low Dose Aspirin EC] 81 mg PO BID No Action quiNINE sulfate [quiNINE SULFATE] 324 mg PO HS PRN PRN Reason: leg cramps Levothyroxine Sodium [Synthroid] 75 mcg PO DAILY Losartan Potassium 100 mg PO DAILY Biotin [Biotin Disolve] 5,000 mcg PO DAILY Zinc Gluconate [Zinc] 50 mg PO DAILY Cholecalciferol [Vitamin D3 (25 Mcg = 1000 Iu)] 25 mcg PO DAILY Ascorbic Acid [Vitamin C] 500 mg PO DAILY traMADol HCL 50 mg PO Q8H PRN PRN Reason: Pain Celecoxib [CeleBREX] 200 mg PO DAILY Fluticasone Nasal [place] [Flonase Nasal [place]] 2 spray EA NOSTRIL DAILY PRN PRN Reason: allergies Cyanocobalamin (Vitamin B-12) [Vitamin B-12] 1,000 mcg PO DAILY Ergocalciferol (Vitamin D2) [Drisdol (50,000 Iu)] 1,250 mcg PO WEEKLY Floradix 10 ml PO BID Cranberry Fruit Extract [Cranberry] 500 mg PO DAILY Discharge Medication List Aspirin [Adult Low Dose Aspirin EC] 81 mg PO BID 08/13/17 [History] Levothyroxine Sodium [Synthroid] 75 mcg PO DAILY 08/13/17 [History] Losartan Potassium 100 mg PO DAILY 08/13/17 [History] quiNINE sulfate [quiNINE SULFATE] 324 mg PO HS PRN 08/13/17 [History] Biotin [Biotin Disolve] 5,000 mcg PO DAILY 08/11/20 [History] Ascorbic Acid [Vitamin C] 500 mg PO DAILY 09/24/23 [History] Celecoxib [CeleBREX] 200 mg PO DAILY 09/24/23 [History] Cholecalciferol [Vitamin D3 (25 Mcg = 1000 Iu)] 25 mcg PO DAILY 09/24/23 [History] Cranberry Fruit Extract [Cranberry] 500 mg PO DAILY 09/24/23 [History] Cyanocobalamin (Vitamin B-12) [Vitamin B-12] 1,000 mcg PO DAILY 09/24/23 [History] Ergocalciferol (Vitamin D2) [Drisdol (50,000 Iu)] 1,250 mcg PO WEEKLY 09/24/23 [History] Floradix 10 ml PO BID 09/24/23 [History] Fluticasone Nasal [place] [Flonase Nasal [place]] 2 spray EA NOSTRIL DAILY PRN 09/24/23 [History] Zinc Gluconate [Zinc] 50 mg PO DAILY 09/24/23 [History] traMADol HCL 50 mg PO Q8H PRN 09/24/23 [History] Sennosides/Docusate Sodium [Senna Plus 8.6-50 mg Softgel] 1 each PO DAILY #20 capsule 09/30/23 [Rx] traMADol HCL 50 mg PO Q6H #28 tab 09/30/23 [Rx] Follow up Appointment(s)/Referral(s): Lauri Gauthier PAC [PHYSICIAN YARN WASHER] - 2 Weeks Patient Instructions/Handouts: Anterior Hip Replacement (DC), Anterior Hip Replacement (GEN) Activity/Diet/Wound Care/Special Instructions: Orthopedic Discharge Instructions: 1. Wound care and infection precautions, keep incision dry and covered while showering, no lotions, creams, moisturizers. No soaking, pools, hot tubs. Do not scrub over incision. 2. Weight-bear as tolerated with walker / cane until follow-up. 3. Ice and elevate when necessary. Do not exceed 20 minutes per hour with ice pack. 4. Utilize compression sleeve until seen at first follow up appointment. 5. Pain meds and anticoagulants per prescription. 6. Pain medication has potential to cause constipation. Increase oral fluid and fiber intake. Contact primary care provider if you have not had a bowel movement within 48 hours after discharge. 7. No anti-inflammatory medication until discussed at first post operative visit, this including Motrin, Aleve, Mobic, Diclofenac. 8. Follow up in office at 2 weeks postop with Manny Gauthier PA-C / Jovan Dominguez PA-C 9. Follow up with your primary care doctor 7-10 days after discharge. 10. Contact [facility] with any questions, . keep incision clean, dry, intact. While showering, cover silver foam dressing with stirrup. Keep silver foam dressing on until 10/06/2023. It is okay to shower directly over incision once dressing is removed on 10/06/2023. Resume ASPIRIN 81 mg BID x 30 days for DVT prophylaxis Discharge Disposition: HOME WITH HOME HEALTH SERVICES
--- NOTE | 2023-09-30 10:20 | P.PN ---
Subjective Progress Note Date: 09/30/23 Principal diagnosis: right hip osteoarthritis patient was seen at bedside this morning sitting up in chair with legs elevated and dressing present over right anterior hip. Patient is complaining of some dryness and hoarseness and the throat. She says she is not having any pain to the right hip at this time. Patient says she did do well with therapy and walk down the dang and up-and-down steps. Patient says she will have her and children helping her out when she goes home. She says she does have a walker at home. Patient says she has urinated a couple times yesterday yesterday without issue. Patient says she has not had bowel movement yet. Patient denies chest pain, fever, shortness of breath, nausea, vomiting, change in vision, loss of bowel/bladder control. Objective - Vital Signs Vital signs: Vital Signs Temp 98.4 F 09/30/23 07:05 Pulse 90 09/30/23 07:05 Resp 16 09/30/23 07:05 BP 149/74 09/30/23 07:05 Pulse Ox 99 09/30/23 07:05 FiO2 Intake & Output 09/29/23 09/30/23 09/30/23 18:59 06:59 18:59 Intake Total 1251 Output Total 65 Balance 1186 Weight 81.647 kg Intake: IV 1251 Output: Estimated Blood Loss 65 Other: Voiding Method Bedside Commode # Voids 0 1 1 - Exam right hip: Incision is clean, dry, and intact. The exofin fusion tape is in good condition. There is minimal soft tissue swelling and ecchymosis surrounding the medial and lateral aspects of the incision. Calf is soft, no tenderness with palpation. Plantar flexion, dorsiflexion, EHL, FHL are intact. Sensory exam to light touch throughout the extremity is intact, dorsal pedis pulses 2+. - Labs CBC & Chem 7: 09/30/23 04:36 Labs: Abnormal Lab Results - Last 24 Hours (Table) 09/30/23 Range/Units 04:36 RBC 3.56 L (4.10-5.20) X 10*6/uL Hgb 10.5 L (12.0-15.0) g/dL Hct 32.0 L (37.2-46.3) % Immature Gran # 0.05 H (0.00-0.04) X 10*3/uL Monocytes # 1.05 H (0.20-1.00) X 10*3/uL Eosinophils # 0.01 L (0.04-0.35) X 10*3/uL Assessment and Plan Assessment: 1. right hip osteoarthritis - Postoperative day 1 status post direct anterior right total hip arthroplasty Plan: 1. right hip osteoarthritis - direct anterior right total hip arthroplasty performed yesterday, 09/29/2023. Patient stable at bedside this morning. Patient does have a walker at home. Patient did do well with therapy. Discharge home today with health services. 2. Appreciate medical management 3. Pain management - tramadol 4. DVT prophylaxis - Lovenox in hospital. to resume aspirin 81 mg twice a day 30 days once at home 5. GI prophylaxis - senna 6. PT/OT - weightbearing as tolerated with walker 7. Encourage incentive spirometer use 8. Discharge planning - home with health services today Time with Patient: Less than 30
[2023-09-30] MEDS ORDERED: FLUTICASONE 50MCG/SPRAY NASAL 16GM EA NOSTRIL PRN (10:25)
--- NOTE | 2023-09-30 10:32 | P.CONS ---
History of Present Illness - Reason for Consult Consult date: 09/30/23 Medical management hypertension Requesting physician: Daniel Bliss - Chief Complaint Osteoarthritis right hip, status post total hip arthroplasty - History of Present Illness Is a pleasant 88-year-old female with past medical history of hearing disorder/deafness, hypertension, memory impairment, osteoarthritis, hypothyroidism and multiple other medical issues status post total right hip arthroplasty secondary to osteoarthritis. Tolerated procedure well. Hyperten sive postprocedure, improved this morning. Denies headache. Denies chest pain, palpitations or shortness of breath. Maintaining O2 sats in the high 90s on room air. Ambulated, completed stairs with PT, tolerated exertion well. Pain better controlled, reports some mild burning at surgical site upon sitting up at bedside. Last bowel movement yesterday, passing flatus. complains of mild sinus drainage. Review of Systems Constitutional: Denied any fever or chills. Cardio vascular: denied any chest pain, palpitations Gastrointestinal denied any nausea ,vomiting Pulmonary: Denied any shortness of breath cough. Neurologic denied any new focal deficits ROS Statement: Those systems with pertinent positive or pertinent negative responses have been documented in the HPI. ROS Other: All systems not noted in ROS Statement are negative. Past Medical History Past Medical History: Cancer, Hearing Disorder / Deafness, Hypertension, Memory Impairment, Osteoarthritis (OA), Thyroid Disorder Additional Past Medical History / Comment(s): urinary leakage, skin cancer, numbness in fingers & right hand, chronic anemia History of Any Multi-Drug Resistant Organisms: None Reported Past Surgical History: Back Surgery, Bladder Surgery, Cholecystectomy, H ysterectomy, Joint Replacement Additional Past Surgical History / Comment(s): left and right knee replacement, left hip replacement, lumbar fusion with plate and screws 2009, removal of scar tissue on spine. cervical fusion Past Anesthesia/Blood Transfusion Reactions: No Reported Reaction Past Psychological History: No Psychological Hx Reported Smoking Status: Never smoker Past Alcohol Use History: None Reported Past Drug Use History: None Reported - Past Family History Father Family Medical History: Congestive Heart Failure (CHF) Medications and Allergies Home Medications Medication Instructions Recorded Confirmed Type Aspirin [Adult Low Dose Aspirin EC] 81 mg PO BID 08/13/17 09/30/23 History Levothyroxine Sodium [Synthroid] 75 mcg PO DAILY 08/13/17 09/24/23 History Losartan Potassium 100 mg PO DAILY 08/13/17 09/24/23 History quiNINE sulfate [quiNINE SULFATE] 324 mg PO HS PRN 08/13/17 09/24/23 History Biotin [Biotin Disolve] 5,000 mcg PO DAILY 08/11/20 09/24/23 History Ascorbic Acid [Vitamin C] 500 mg PO DAILY 09/24/23 09/24/23 History Celecoxib [CeleBREX] 200 mg PO DAILY 09/24/23 09/24/23 History Cholecalciferol [Vitamin D3 (25 25 mcg PO DAILY 09/24/23 09/24/23 History Mcg = 1000 Iu)] Cranberry Fruit Extract [Cranberry] 500 mg PO DAILY 09/24/23 09/24/23 History Cyanocobalamin (Vitamin B-12) 1,000 mcg PO DAILY 09/24/23 09/24/23 History [Vitamin B-12] Ergocalciferol (Vitamin D2) 1,250 mcg PO WEEKLY 09/24/23 09/24/23 History [Drisdol (50,000 Iu)] Floradix 10 ml PO BID 09/24/23 09/24/23 History Fluticasone Nasal [place] [Flonase 2 spray EA NOSTRIL DAILY PRN 09/24/23 09/24/23 History Nasal [place]] Zinc Gluconate [Zinc] 50 mg PO DAILY 09/24/23 09/24/23 History Multivitamins, Thera [Multivitamin 1 each PO DAILY@1200 tab 09/30/23 Rx (formulary)] Pantoprazole Sodium [Protonix] 40 mg PO DAILY #30 tab 09/30/23 Rx Sennosides/Docusate Sodium [Senna 1 each PO DAILY #20 capsule 09/30/23 Rx Plus 8.6-50 mg Softgel] traMADol HCL 50 mg PO Q6H #28 tab 09/30/23 Rx Allergies Allergy/AdvReac Type Severity Reaction Status Date / Time codeine Allergy Nausea & Verified 09/29/23 10:34 Vomiting morphine Allergy Hallucinati Verified 09/29/23 10:34 ons Sulfa (Sulfonamide Allergy Rash/Hives Verified 09/29/23 10:34 Antibiotics) Physical Exam Vitals: Vital Signs Temp Pulse Pulse Resp BP BP Pulse Ox 09/30/23 07:05 98.4 F 90 16 149/74 99 09/30/23 01:18 97.8 F 96 16 148/74 98 09/29/23 19:56 97.8 F 85 17 171/93 97 09/29/23 17:30 97.9 F 77 18 153/72 96 09/29/23 16:00 78 16 151/88 100 09/29/23 15:45 64 16 142/68 96 09/29/23 15:30 64 16 156/63 97 09/29/23 15:15 63 16 152/68 96 09/29/23 15:00 69 16 169/75 100 09/29/23 14:45 72 16 161/82 100 09/29/23 14:30 68 16 152/78 100 09/29/23 14:16 97 F L 67 16 134/59 96 09/29/23 11:50 63 16 173/72 100 09/29/23 11:24 171/72 09/29/23 10:37 98.6 F 86 16 196/84 93 L Intake and Output 09/29/23 09/30/23 09/30/23 22:59 06:59 14:59 Intake Total 200 Balance 200 Intake: IV 200 Other: Voiding Method Bedside Commode # Voids 0 1 1 Weight 81.647 kg PHYSICAL EXAM: VITAL SIGNS: [As above] GENERAL: Pleasant, well-nourished, alert and oriented x 3, sitting up in chair, no acute distress HEENT: Normocephalic, atraumatic ,conjunctivae normal. eyes normal. NECK: Supple, no JVD. No thyroid enlargement. No LNs CARDIOVASCULAR: S1, S2 regular.. No murmur RESPIRATION: Unlabored, equal air entry, clear to auscultation with bilateral bases diminished. ABDOMEN: Soft, nondistended, nontender . No guarding. no masses palpable. Positive bowel sounds LEGS: Right hip dressing clean dry and intact, minimal edema, no calf tenderness, positive DP pulse. NERVOUS SYSTEM: Cranial N 2-12 grossly normal.No focal deficits. Strength and sensation grossly intact. Skin: Warm and dry, no rash Results CBC & Chem 7: 09/30/23 04:36 Labs: Abnormal Lab Results - Last 24 Hours (Table) 09/30/23 Range/Units 04:36 RBC 3.56 L (4.10-5.20) X 10*6/uL Hgb 10.5 L (12.0-15.0) g/dL Hct 32.0 L (37.2-46.3) % Immature Gran # 0.05 H (0.00-0.04) X 10*3/uL Monocytes # 1.05 H (0.20-1.00) X 10*3/uL Eosinophils # 0.01 L (0.04-0.35) X 10*3/uL Assessment and Plan Assessment: Right hip osteoarthritis status post direct anterior right total hip arthroplasty Hypertension Plan: Continue on current medication regimen ,monitoring and symptomatic treatment. Discharge planning in progress as per orthopedic surgery. Pain management and DVT prophylaxis as per orthopedic surgery. Rest of pulmonary toileting, maintain incentive spirometer at discharge as previously advised. Home meds have been reviewed and resumed accordingly. Medically cleared for DC. Follow-up with PCP in 1 week. Thank you for the consult. The impression and plan of care has been dictated as directed. : I performed a history and examination of this patient, discussed the same with the dictator. I agree with the dictator's note ,documented as a scribe. Any additional findings or plans will be noted.
[2023-09-30] MEDS: traMADol 50 MG TAB PO PRN (11:21)
[2023-09-30] MEDS: FLORADIX PO SCH (11:24)
[2023-09-30] MEDS: MULTIVITAMINS, THERA 1 EACH TAB PO SCH (13:28)
== END 2023-09-30 14:01 | disposition home health service (06) ==
LOC: OR 10:08 → 4SSUR 14:08 → OR 09-30 14:01
PROVIDERS: ATTEND Orthopaedic Surgery
DX: M16.11 Unilateral primary osteoarthritis, right hip (principal); G89.18 Other acute postprocedural pain; I10 Essential (primary) hypertension; E03.9 Hypothyroidism, unspecified; Z90.49 Acquired absence of other specified parts of digestive tract; Z90.710 Acquired absence of both cervix and uterus; Z79.82 Long term (current) use of aspirin; Z79.899 Other long term (current) drug therapy; Z98.890 Other specified postprocedural states
CPT/HCPCS: 73501; 27130; 64447; J2250; J1100; J0690 ×2; J2405; J3010; 85025

== ENCOUNTER 2023-11-02 10:55 | Emergency (ER) | payer MEDICARE, BC ==
--- NOTE | 2023-11-02 12:05 | ED ---
Lower Extremity Injury HPI - General Chief Complaint: Extremity Injury, Lower Stated Complaint: hip pain Time Seen by Provider: 11/02/23 11:15 Source: patient, RN notes reviewed Mode of arrival: wheelchair Limitations: no limitations - History of Present Illness Initial Comments: 88-year-old female presenting with right hip pain x 2 weeks. States she had a right hip replacement surgery on September 28. The surgery went well and there was no complications, patient completed physical therapy with no issues. However, about 2 weeks ago she began to have episodes of right hip pain radiating down her right thigh. She saw her surgeon 5 days ago who told her everything was normal. She saw her PCP 2 days ago who gave her steroids and muscle relaxers which mildly helped however they told her if the pain does not improve to come to the ER to get a CT scan of the hip. Patient states that episodes of pain in the leg are becoming more frequent and are associated with movement. She states the pain is mildly relieved if she holds pressure on the area. Denies fever, weakness, numbness, tingling, rash, redness to the area. - Related Data Home Medications Medication Instructions Recorded Confirmed Aspirin [Adult Low Dose Aspirin EC] 81 mg PO BID 08/13/17 09/30/23 Levothyroxine Sodium [Synthroid] 75 mcg PO DAILY 08/13/17 09/24/23 Losartan Potassium 100 mg PO DAILY 08/13/17 09/24/23 quiNINE sulfate [quiNINE SULFATE] 324 mg PO HS PRN 08/13/17 09/24/23 Biotin [Biotin Disolve] 5,000 mcg PO DAILY 08/11/20 09/24/23 Ascorbic Acid [Vitamin C] 500 mg PO DAILY 09/24/23 09/24/23 Celecoxib [CeleBREX] 200 mg PO DAILY 09/24/23 09/24/23 Cholecalciferol [Vitamin D3 (25 25 mcg PO DAILY 09/24/23 09/24/23 Mcg = 1000 Iu)] Cranberry Fruit Extract [Cranberry] 500 mg PO DAILY 09/24/23 09/24/23 Cyanocobalamin (Vitamin B-12) 1,000 mcg PO DAILY 09/24/23 09/24/23 [Vitamin B-12] Ergocalciferol (Vitamin D2) 1,250 mcg PO WEEKLY 09/24/23 09/24/23 [Drisdol (50,000 Iu)] Floradix 10 ml PO BID 09/24/23 09/24/23 Fluticasone Nasal [place] [Flonase 2 spray EA NOSTRIL DAILY PRN 09/24/23 09/24/23 Nasal [place]] Zinc Gluconate [Zinc] 50 mg PO DAILY 09/24/23 09/24/23 Previous Rx's Medication Instructions Recorded Multivitamins, Thera [Multivitamin 1 each PO DAILY@1200 tab 09/30/23 (formulary)] Pantoprazole Sodium [Protonix] 40 mg PO DAILY #30 tab 09/30/23 Sennosides/Docusate Sodium [Senna 1 each PO DAILY #20 capsule 09/30/23 Plus 8.6-50 mg Softgel] traMADol HCL 50 mg PO Q6H #28 tab 09/30/23 Allergies Allergy/AdvReac Type Severity Reaction Status Date / Time codeine Allergy Nausea & Verified 11/02/23 11:02 Vomiting morphine Allergy Hallucinati Verified 11/02/23 11:02 ons Sulfa (Sulfonamide Allergy Rash/Hives Verified 11/02/23 11:02 Antibiotics) Review of Systems ROS Statement: Those systems with pertinent positive or pertinent negative responses have been documented in the HPI. ROS Other: All systems not noted in ROS Statement are negative. Past Medical History Past Medical History: Hypertension, Neurologic Disorder, Respiratory Disorder, Thyroid Disorder Additional Past Medical History / Comment(s): pain with standing and walking, unable to lift leg more than few inches, numbness of finger and pain in the arm, carpal tunnel, History of Any Multi-Drug Resistant Organisms: None Reported Past Surgical History: Cholecystectomy, Hysterectomy, Joint Replacement Additional Past Surgical History / Comment(s): left and right knee replacement and left hip replacement, lumbar fusion with plate and screws 2009, removal of scar tissue on spine. Rt hip replacement. LUMBAR MYELOGRAM. Past Anesthesia/Blood Transfusion Reactions: No Reported Reaction Past Psychological History: No Psychological Hx Reported Smoking Status: Never smoker Past Alcohol Use History: None Reported Past Drug Use History: None Reported - Past Family History Father Family Medical History: Congestive Heart Failure (CHF) General Exam Limitations: no limitations General appearance: alert, in no apparent distress Head exam: Present: atraumatic, normocephalic, normal inspection Eye exam: Present: normal appearance, PERRL, EOMI. Absent: scleral icterus, conjunctival injection, periorbital swelling Right Hip exam: Present: normal inspection (No skin changes or erythema or warmth), full ROM. Absent: tenderness, swelling Upper Leg exam: Present: normal inspection, full ROM. Absent: tenderness, swelling Knee exam: Present: normal inspection, full ROM. Absent: tenderness, swelling Lower Leg exam: Present: normal inspection, full ROM. Absent: tenderness, swelling Ankle exam: Present: normal inspection, full ROM. Absent: tenderness, swelling Foot/Toe exam: Present: normal inspection, full ROM. Absent: tenderness, swelling Neurovascular tendon exam: Present: no vascular compromise. Absent: pulse deficit, abnormal cap refill, sensory deficit (Full sensation of bilateral lower extremities, full range of motion of bilateral hips. Dorsalis pedis pulses present bilaterally and cap refill less than 2 seconds.) Course Vital Signs 11/02/23 11/02/23 11/02/23 10:57 13:31 15:26 Temperature 98.6 F 97.2 F L Pulse Rate 75 68 62 Respiratory 18 16 20 Rate Blood Pressure 160/83 153/68 157/79 O2 Sat by Pulse 96 99 98 Oximetry Medical Decision Making - Medical Decision Making Was pt. sent in by a medical professional or institution (, PA, ATLASSIAN ADMINISTRATOR, urgent care, hospital, or fdc...) When possible be specific @ -No Did you speak to anyone other than the patient for history (EMS, parent, family, police, friend...)? What history was obtained from this source @ -Patient's and daughter supplemented history Did you review nursing and triage notes (agree or disagree)? Why? @ -I reviewed and agree with nursing and triage notes Were old charts reviewed (outside hosp., previous admission, EMS record, old EKG, old radiological studies, urgent care reports/EKG's, fdc records)? Report findings @ -No old charts were reviewed Differential Diagnosis (chest pain, altered mental status, abdominal pain women, abdominal pain men, vaginal bleeding, weakness, fever, dyspnea, syncope, headache, dizziness, GI bleed, back pain, seizure, CVA, palpatations, mental health, musculoskeletal)? @ -Differential Musculoskeletal Muscular strain, contusion, ligament sprain, fracture, arthritis, septic arthritis, bursitis, cellulitis, muscle spasm, nerve compression, DVT, arterial occlusion, herpes zoster, electrolyte abnormality, tumor.... This is not meant to be in all inclusive list EKG interpreted by me (3pts min.). @ -None X-rays interpreted by me (1pt min.). @ -None done CT interpreted by me (1pt min.). @ -CT of right hip revealed nondisplaced periprosthetic fracture of femur U/S interpreted by me (1pt. min.). @ -None done What testing was considered but not performed or refused? (CT, X-rays, U/S, labs)? Why? @ -None What meds were considered but not given or refused? Why? @ -None Did you discuss the management of the patient with other professionals (kai white i.e. , PA, ATLASSIAN ADMINISTRATOR, lab, RT, psych nurse, certified social workers in health care, manager treasury, teacher, court collections officer, casework supervisor)? Give summary @ -Discussed case with [facility] LOWRY from [facility]. The recommendation was made that patient is discharged today with follow-up with Dr. Bliss, who performed surgery, in 2 days. Was smoking cessation discussed for >3mins.? @ -No Was critical care preformed (if so, how long)? @ -No Were there social determinants of health that impacted care today? How? (Homelessness, low income, unemployed, alcoholism, drug addiction, transportation, low edu. Level, literacy, decrease access to med. care, assisted, rehab)? @ -No Was there de-escalation of care discussed even if they declined (Discuss DNR or withdrawal of care, Hospice)? DNR status @ -No What co-morbidities impacted this encounter? (DM, HTN, Smoking, COPD, CAD, Cancer, CVA, ARF, Chemo, Hep., AIDS, mental health diagnosis, sleep apnea, morbid obesity)? @ -None Was patient admitted / discharged? Hospital course, mention meds given and route, prescriptions, significant lab abnormalities, going to OR and other pertinent info. @ -Patient was discharged. Patient was seen and evaluated for right hip pain x 2 weeks status post right hip replacement surgery 1 month ago. Patient is neurovascularly intact and able to weight-bear with pain. Patient has had multiple x-rays performed which were negative, sent by PCP for CT scan of right hip. CT scan of right hip reveals nondisplaced periprosthetic fracture of femur. Case discussed with Jovan LOWRY from [facility], the recommendation was made that patient is discharged today with follow-up with Dr. Bliss. Discussed diagnosis of right femur fracture with patient and family members. Patient is requesting Toradol injection, risks discussed with patient in detail and patient shows understanding and agrees to receive the Toradol. Supportive care discussed. Patient is instructed to be nonweightbearing, "toe touch only", with walker. Strict alarm/return symptoms discussed with patient and family and they show understanding and agree to plan. Patient discharged in stable condition. Case discussed with Dr. Martinez. Undiagnosed new problem with uncertain prognosis? @ -No Drug Therapy requiring intensive monitoring for toxicity (Heparin, Nitro, Insulin, Cardizem)? @ -No Were any procedures done? @ -No Diagnosis/symptom? @ -Right femur fracture Acute, or Chronic, or Acute on Chronic? @ -Acute Uncomplicated (without systemic symptoms) or Complicated (systemic symptoms)? @ -Uncomplicated Side effects of treatment? @ -No Exacerbation, Progression, or Severe Exacerbation? @ -No Poses a threat to life or bodily function? How? (Chest pain, [place], [place], pneumonia, PE, COPD, DKA, ARF, appy, cholecystitis, CVA, Diverticulitis, Homicidal, [place], threat to staff... and all critical care pts) @ -No Disposition Clinical Impression: Femur fracture, right Disposition: HOME SELF-CARE Condition: Stable Instructions (If sedation given, give patient instructions): Leg Fracture (ED) Additional Instructions: Please follow-up with Dr. Bliss as discussed on November 03. Please return to the Emergency Department if symptoms worsen or any other concerns. Is patient prescribed a controlled substance at d/c from ED?: No Referrals: Bhargav Tadeo MD [Primary Care Provider] - 1-2 days Daniel Bliss DO [Doctor of Osteopathic Medicine] - 11/04/23 Time of Disposition: 15:15
--- NOTE | 2023-11-02 13:07 | CT ---
EXAMINATION TYPE: CT hip RT wo con CT DLP: 694.2 mGycm, Automated exposure control for dose reduction was used. DATE OF EXAM: 11/02/2023 12:17 PM COMPARISON: 10/29/2023 CLINICAL INDICATION:Female, 88 years old with history of right hip pain s/p hip replacement; [facility], Hip surgery September 28. severe pain last ten days TECHNIQUE: Axial images were obtained of the CT hip RT wo con, Additional coronal and sagittal reform atted images and soft tissue and bone window were obtained for review.. Contrast used: mL of , (None if empty) Oral contrast used: (None if empty) FINDINGS: Lucency through the anterior medial aspect of the femur along the stem. Series 201 image 37 and series 203 image 31. Series 202 image 36 The acetabulum and remainder of the osseous structures appears intact. Mild soft tissue edema along the medial groin. Few scattered colonic diverticula. IMPRESSION: Nondisplaced periprosthetic fracture of the femur.
[2023-11-02 14:01] VITALS: TEMP 97.2
[2023-11-02] MEDS: KETOROLAC 15 MG/ML 1 ML VIAL IM STA (15:04)
[2023-11-02 15:41] VITALS: BP 157/79; PULSE 62; RESP 20
== END 2023-11-02 15:40 | disposition home or self-care (01) ==
LOC: EC 10:55
DX: S72.91XA Unspecified fracture of right femur, initial encounter for closed fracture (principal); Z88.5 Allergy status to narcotic agent; Z88.2 Allergy status to sulfonamides; X58.XXXA Exposure to other specified factors, initial encounter
CPT/HCPCS: 73700; 99283; 96372; J1885

== ENCOUNTER → 2023-11-20 | Outpatient (CLI) | payer MEDICARE, BC ==
--- NOTE | 2023-11-21 09:42 | MR ---
EXAMINATION TYPE: MR lumbar spine wo con DATE OF EXAM: 11/20/2023 COMPARISON: 08/10/2014 HISTORY: Lumbar radiculopathy, hx surgery. TECHNIQUE: Multiplanar, multisequence images of the lumbar spine were acquired without IV contrast. Findings: There has been laminectomy and posterior metallic fusion from L3 through L5. The lumbar vertebral segments are normal in height and there is no evidence of fracture. There is slight retrolisthesis of L1 on L2 and a grade 1 anterolisthesis of L4 on L5. There is marked disc space narrowing, spondylosis and discogenic endplate changes at the L1-2 level. There is mild disc space narrowing and sequential disc bulge at the L to 3, L3-4 and L4-5 levels. The re is mild circumferential disc bulge of the L5-S1 disc. There is a large far right lateral disc prot rusion/eccentric disc bulge of the L1-2 disc probably compromising the right lateral recess and sever lev compromising the right L1-2 neural foramina.. Moderate to severe neural foraminal stenosis at the L2-3 level bilaterally and also at the L1-2 level on the left. There is no spinal stenosis. There is moderate facet hypertrophy at L1-L5 S1 levels. There are no epidural or paraspinal fluid collections. There is marked atrophy of the posterior paraspinal musculature. IMPRESSION: 1. Laminectomy and posterior metallic fusion of L3-L5. 2. Grade 1 retrolisthesis of L1 on L2 and grade 1 anterolisthesis of L4 on L5. 3. Large right lateral broad-based disc protrusion/eccentric disc bulge of the L1-2 disc severely com promising the right L1-2 neural foramina and mildly compromising the right L1-2 lateral recess. 4. Additional significant neuroforaminal stenosis at L1-2 on the left and at L2-3 bilaterally. No nino tral canal stenosis
== END | disposition home or self-care (01) ==
LOC: RADMRIMAIN 15:28
PROVIDERS: ATTEND Orthopaedic Surgery
DX: M43.16 Spondylolisthesis, lumbar region (principal); M99.73 Connective tissue and disc stenosis of intervertebral foramina of lumbar region; M51.16 Intervertebral disc disorders with radiculopathy, lumbar region; Z98.1 Arthrodesis status
CPT/HCPCS: 72148